=== PATIENT | male | born 1995 | race Caucasian/White ===

== ENCOUNTER 2017-07-17 03:05 | Emergency (ER) | payer SELFPAY ==
[~2017-07-17] VITALS: Ht 167.6 cm; Wt 95.3 kg
[2017-07-17 03:09] VITALS: BP 138/79
--- NOTE | 2017-07-17 03:20 | NUR ---
TO ER OF2
[2017-07-17 04:22] VITALS: BP 138/79
== END 2017-07-17 04:22 | disposition home or self-care (01) ==
LOC: MED 03:05
DX: H81.10 Benign paroxysmal vertigo, unspecified ear (principal)
CPT/HCPCS: 99282

== ENCOUNTER 2017-07-23 16:16 | Emergency (ER) | payer SELFPAY ==
[~2017-07-23] VITALS: Ht 167.6 cm; Wt 95.3 kg
[2017-07-23 16:21] VITALS: BP 146/90
--- NOTE | 2017-07-23 17:00 | NUR ---
NOTIFIED OF DIP STICK RESULTS----ASKED MD IF HE WOULD LIKE FOR KIDNEY ULTRASOUND ; MD WILL EVAL PRIOR
--- NOTE | 2017-07-23 17:00 | NUR ---
PATIENT PRESENTS TO ED WITH C/O LOWER BACK PAIN. PT STATES HE STARTED HAVING BACK PAIN TODAY AND TOOK IBUPROFEN EARLIER BUT HIS PAIN BECAME WORSE. PT DENIES FALL OR TRAUMA. PATIENT REPORTS THAT HE FELL AT WORK ABOUT A YEAR AGO AND HAS BEEN HAVING ON AND OFF LOWER BACK PAIN SINCE THEN . DENIES N/V/D; SKIN IS PINK/WARM/DRY; AAOX4 WITH EVEN AND STEADY GAIT; LUNGS CLEAR BL; HR EVEN AND REGULAR; PT DENIES ANY FEVER, CP, SOB, OR COUGH AT THIS TIME; PATIENT STATES PAIN OF 9/10 AT THIS TIME; VSS; PATIENT POSITIONED FOR COMFORT; HOB ELEVATED; BEDRAILS UP X2; BED DOWN. ER MD MADE AWARE OF PT STATUS.
[2017-07-23 17:12] LABS: APPEARANCE,URINE SL CLOUDY (CLEAR); BILIRUBIN,URINE NEGATIVE (NEGATIVE); BLOOD, URINE 3+ (NEGATIVE); COLOR,URINE YELLOW (YELLOW); LEUKOCYTE ESTERASE ,URINE NEGATIVE (NEGATIVE); NITRITE, URINE NEGATIVE (NEGATIVE); UGLUCOSE NEGATIVE (NEGATIVE)
[2017-07-23 18:16] LABS: RBC,URINE >100 /HPF (0-5)
[2017-07-23 18:17] LABS: YEAST,URINE Few /HPF (None Seen)
[2017-07-23] MEDS ORDERED: KETOROLAC 30 MG/ML VIAL IVP ONE (19:20)
[2017-07-23] MEDS ORDERED: NACL 0.9% 1,000 ML IV ONE (19:20)
--- NOTE | 2017-07-23 20:30 | NUR ---
ALL RESULTS BACK AND NOTED BY ERMD AND FOR D/C
[2017-07-23 21:01] VITALS: BP 114/60
--- NOTE | 2017-07-23 21:01 | NUR ---
Patient discharged with v/s stable. Written and verbal after care instructions given and explained. Patient alert, oriented and verbalized understanding of instructions. Ambulatory with steady gait. All questions addressed prior to discharge. ID band removed. Patient advised to follow up with PMD. Rx of TRAMADO, 50 MG, MOTRIN 800MG given. Patient educated on indication of medication including possible reaction and side effects. Opportunity to ask questions provided and answered.
== END 2017-07-23 21:01 | disposition home or self-care (01) ==
LOC: MED 16:16
DX: N20.0 Calculus of kidney (principal)
CPT/HCPCS: 74176; 81001; 87086; 96361; 96374; 99285; J1885; J7030

== ENCOUNTER 2019-06-04 19:52 | Emergency (ER) | payer OTHER ==
[~2019-06-04] VITALS: Ht 170.2 cm; Wt 99.8 kg
[2019-06-04 19:53] VITALS: BP 160/101
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
--- NOTE | 2019-06-04 20:08 | NUR ---
PT TRIAGED, SENT BACK TO LOBBY AWAITING FOR BED
--- NOTE | 2019-06-04 21:00 | NUR ---
PT AMBULATED TO BED WITH FIANCE
[2019-06-04] MEDS ORDERED: KETOROLAC 30 MG/ML VIAL IM ONE (21:20)
--- NOTE | 2019-06-04 21:26 | NUR ---
PATIENT TAKEN TO CT.
[2019-06-04 22:30] VITALS: BP 143/89
--- NOTE | 2019-06-04 22:30 | NUR ---
Patient discharged with v/s stable. Pt states pain reduced and tollerable at 3/10. Written and verbal after care instructions given and explained. Patient alert, oriented and verbalized understanding of instructions. Ambulatory with steady gait. All questions addressed prior to discharge. ID band removed. Patient advised to follow up with PMD and when to return to ER. Rx of Naprosyn given. Patient educated on indication of medication including possible reaction and side effects. Opportunity to ask questions provided and answered.
== END 2019-06-04 22:30 | disposition home or self-care (01) ==
LOC: MED 19:52
DX: S16.1XXA Strain of muscle, fascia and tendon at neck level, initial encounter (principal); S06.0X0A Concussion without loss of consciousness, initial encounter; F17.210 Nicotine dependence, cigarettes, uncomplicated; V63.6XXA Passenger in heavy transport vehicle injured in collision with car, pick-up truck or van in traffic accident, initial encounter; Y93.89 Activity, other specified; Y92.410 Unspecified street and highway as the place of occurrence of the external cause; Y99.8 Other external cause status
CPT/HCPCS: 70450; 71045; 72125; 96372; 99284; J1885

== ENCOUNTER 2019-11-29 02:30 | Emergency (ER) | payer MEDICAID ==
[~2019-11-29] VITALS: Ht 167.6 cm; Wt 104.3 kg
[2019-11-29 02:38] VITALS: BP 142/108
--- NOTE | 2019-11-29 02:41 | NUR ---
PT AMBULATED TO BED 4 WITH STEADY GAIT
--- NOTE | 2019-11-29 02:45 | NUR ---
PT 24 Y/O FEMALE BIB SELF FOR C/O L FLANK PAIN X 3 HOURS AGO. PT STATES HE HAS PAINFUL/BURNING DURING URINATION. PT STATES HE NOTICED BLOOD IN URINE. PAIN 10/10 SHARP AND CONTINOUS IN L FLANK. PAIN IS NON RADIATING. PT STATES HE TOOK TYLENOL AT HOME FOR PAIN RELIEF WITH INEFFECTIVE RESULTS. PT NOTED WITH LABORED, SHALLOW BREATHING. LUNG SOUNDS CLEAR A/P BILAT. AFEBRILE. O2SAT @ 96%. PT BED LOCKED AND IN LOWEST POSITION. PT POSITIONED IN BED FOR COMFORT. MEDHX: KIDNEY STONES X 1 YEAR AGO ALLERGIES: NKA
--- NOTE | 2019-11-29 02:45 | NUR ---
PT PROVIED URINE SAMPLE ; URINE DIP DONE AND GIVEN TO . URINE SAMPLE LEFT FOR LAB TO PICKUP
[2019-11-29] MEDS ORDERED: NACL 0.9% 1,000 ML IV ONE (02:50)
[2019-11-29] MEDS ORDERED: KETOROLAC 30 MG/ML VIAL IVP ONE (02:50)
--- NOTE | 2019-11-29 02:50 | NUR ---
AT BEDSIDE EXAMINING PT
--- NOTE | 2019-11-29 03:00 | NUR ---
PT GIVEN TORADOL 30 MG IVF IN R WIRST FOR C/O 10/10 L FLANK PAIN. IVF INTITIATED NS 0.9% 1L. IV SITE IS PATENT. NO SWELLING OR C/O PAIN NOTED.
--- NOTE | 2019-11-29 03:20 | NUR ---
PT STATES L FLANK PAIN HAS REDUCED FROM 10/10 TO 4/10.
--- NOTE | 2019-11-29 03:45 | NUR ---
PT RESPIRATION ARE EVEN AND UNLABORED. PT RESTING IN BED AND RESPONSIVE TO VERBAL STIMULI. VSS. PT STATES PAIN HAS REDUCED TO 0/10 IN L FLANK. PT IVF FINISHED. IV SITE HAS NO SWELLING OR REDNESS AND PT HAS NO C/O PAIN AT SITE.
--- NOTE | 2019-11-29 03:49 | NUR ---
IV removed, catheter intact and site benign. Applied folded 4x4 gauze and tape to stop bleeding.
[2019-11-29 03:50] VITALS: BP 128/86
--- NOTE | 2019-11-29 03:50 | NUR ---
Patient discharged with v/s stable. Written and verbal after care instructions given and explained. Patient alert, oriented and verbalized understanding of instructions. Ambulatory with steady gait. All questions addressed prior to discharge. ID band removed. Patient advised to follow up with PMD. Rx of FLOMAX, MOTRIN, NORCO given. Patient educated on indication of medication including possible reaction and side effects. Opportunity to ask questions provided and answered.
== END 2019-11-29 03:50 | disposition home or self-care (01) ==
LOC: MED 02:30
DX: R10.9 Unspecified abdominal pain (principal)
CPT/HCPCS: 81002; 96374; 99283; J1885; J7030

== ENCOUNTER 2019-12-06 05:43 | Emergency (ER) | payer MEDICAID ==
[~2019-12-06] VITALS: Ht 167.6 cm; Wt 104.3 kg
[2019-12-06 05:53] VITALS: BP 141/88
--- NOTE | 2019-12-06 05:57 | NUR ---
PT AMBULATED TO BED 7 WITH STEADY GAIT
--- NOTE | 2019-12-06 06:00 | NUR ---
24 y/o male presented to ED c/o left flank pain that radiates to LLQ abd x 1 week. Pt was seen at [facility] ED 11/28 for left flank pain. Pt rates pain 10/10 , constant stabbing sensation. Pt took 800mg Ibuprofen at 0400 this morning w/ no relief. Pt states N/V x8 this week , dysuria , hematuria. Pt denies Fever and diarrhea. pt states this pain feels the same as when he had kidney stones previously. Pt breathing even and unlabored. PT VSS. Pt resting in bed, locked and in lowest position, HOB elevated , side rail x1. pmh: kidney stones NKA
[2019-12-06] MEDS ORDERED: NACL 0.9% 1,000 ML IV ONE (06:05)
[2019-12-06] MEDS ORDERED: KETOROLAC 30 MG/ML VIAL IVP ONE (06:05)
--- NOTE | 2019-12-06 07:13 | NUR ---
RECEIVED REPORT FROM YASMANY SALCIDO , PT COMFORTABLE IN BED ,WITH STABLE V/S , SIDE RAILS UP X1 AND LOCK.
--- NOTE | 2019-12-06 07:13 | NUR ---
REPORT GIVEN TO YASMANY ESTRADA FOR TRANSFER OF CARE.
--- NOTE | 2019-12-06 07:22 | NUR ---
pt taken to ct via consuelo
--- NOTE | 2019-12-06 07:29 | NUR ---
PT BACK FROM [facility].
[2019-12-06 08:18] VITALS: BP 130/80
--- NOTE | 2019-12-06 08:18 | NUR ---
Patient discharged with v/s stable. Written and verbal after care instructions given and explained regarding kidney stones. Patient alert, oriented and verbalized understanding of instructions. Ambulatory with steady gait. All questions addressed prior to discharge. ID band removed. Patient advised to follow up with PMD. Rx of flomax , ibuprofen and norco given. Patient educated on indication of medication including possible reaction and side effects. Opportunity to ask questions provided and answered. Excuse from work given .
--- NOTE | 2019-12-11 08:15 | NUR ---
LATE ENTRY- NS 0.9% BOLUS DISCONTUIED AT 0818.
== END 2019-12-06 08:18 | disposition home or self-care (01) ==
LOC: MED 05:43
DX: N20.0 Calculus of kidney (principal); R31.9 Hematuria, unspecified; J45.909 Unspecified asthma, uncomplicated
CPT/HCPCS: 74176; 81002; 96374; 99284; J1885; J7030; 96375

== ENCOUNTER 2020-09-04 15:09 | Emergency (ER) | payer MEDICAID ==
[~2020-09-04] VITALS: Ht 167.6 cm; Wt 95.3 kg
[2020-09-04 15:19] VITALS: BP 127/90
--- NOTE | 2020-09-04 15:21 | NUR ---
PATIENT AMBULATED TO LOBBY WITH STEADY GAIT
--- NOTE | 2020-09-04 15:32 | NUR ---
25 y/o m coming in from home with c/c ches tpain x 3 weeks. Patient states left pectoral chest pain, non radiating, 3/10 at rest, 10/10 while working. Pt states recent stressor of work. Pt states pain pins/needs, intermittent. States fisrt time occuring. Associated SOB when happening; denies it at this time. Pt states Tylenol at 11am, states relief for 30 mins. PMH/Meds/Allergies: Denies
--- NOTE | 2020-09-04 15:55 | NUR ---
EMT at bedside for EKG.
[2020-09-04 16:49] VITALS: BP 127/90
--- NOTE | 2020-09-04 16:49 | NUR ---
Patient discharged with v/s stable. Written and verbal after care instructions given and explained. Patient verbalized understanding. Ambulatory with steady gait. All questions addressed prior to discharge. Advised to follow up with PMD.
== END 2020-09-04 16:49 | disposition home or self-care (01) ==
LOC: MED 15:09
DX: R07.89 Other chest pain (principal); J45.909 Unspecified asthma, uncomplicated
CPT/HCPCS: 93005; 99283

== ENCOUNTER 2020-10-05 15:26 | Emergency (ER) | payer MEDICAID ==
[~2020-10-05] VITALS: Ht 167.6 cm; Wt 98.9 kg
[2020-10-05 15:31] VITALS: BP 149/78
[2020-10-05] MEDS ORDERED: KETOROLAC 60 MG/2 ML VIAL IM ONE (16:30)
[2020-10-05] MEDS ORDERED: IBUP-2213 PO (16:44)
[2020-10-05] MEDS ORDERED: ACET-8386 PO (16:44)
[2020-10-05 16:57] VITALS: BP 138/80
== END 2020-10-05 16:57 | disposition home or self-care (01) ==
LOC: MED 15:26
DX: M25.511 Pain in right shoulder (principal); J45.909 Unspecified asthma, uncomplicated; F17.200 Nicotine dependence, unspecified, uncomplicated
CPT/HCPCS: 73030; 73080; 96372; 99284; J1885

== ENCOUNTER 2021-02-27 07:43 | Emergency (ER) | payer MEDICAID ==
[~2021-02-27] VITALS: Ht 167.6 cm; Wt 87.5 kg
[~2021-02-27 07:43] MED LIST: ACET-8386 PO; IBUP-2213 PO
[2021-02-27 07:54] VITALS: BP 159/87
--- NOTE | 2021-02-27 07:57 | NUR ---
Patient being evaluated by physician in triage.
[2021-02-27] MEDS ORDERED: ONDANSETRON 4 MG ODT PO ONE (08:05)
[2021-02-27] MEDS ORDERED: KETOROLAC 30 MG/ML VIAL IM ONE (08:05)
--- NOTE | 2021-02-27 08:10 | NUR ---
Labs drawn and sent to lab.
--- NOTE | 2021-02-27 08:15 | NUR ---
PT SENT TO LOBBY TO WAIT FOR AVAILABLE BED OR MSE.
[2021-02-27 08:33] LABS: ANION GAP 14.1 (8-16); CARBON DIOXIDE 25.9 mmol/L (21-32); CREATININE 1.6 mg/dL (0.6-1.3)
[2021-02-27] MEDS ORDERED: NACL 0.9% 1,000 ML IV ONE (09:05)
--- NOTE | 2021-02-27 09:16 | NUR ---
Patient ambulated with steady gait to be 8.
[2021-02-27] MEDS ORDERED: HYDROcodone/APAP 5/325 MG 1 TAB TAB PO ONE (10:35)
[2021-02-27 10:57] LABS: APPEARANCE,URINE CLEAR (CLEAR); BILIRUBIN,URINE NEGATIVE (NEGATIVE); BLOOD, URINE 3+ (NEGATIVE); COLOR,URINE YELLOW (YELLOW); LEUKOCYTE ESTERASE ,URINE NEGATIVE (NEGATIVE); NITRITE, URINE NEGATIVE (NEGATIVE); PH,URINE 6.5 (5.0-9.0); UGLUCOSE TRACE (NEGATIVE)
[2021-02-27 11:31] LABS: RBC,URINE 20-50 /HPF (0-5); WBC,URINE NONE SEEN /HPF (0-5)
[2021-02-27] MEDS ORDERED: TAMS0.4C96 PO (12:01)
[2021-02-27] MEDS ORDERED: IBUP-2213 PO (12:01)
[2021-02-27] MEDS ORDERED: ACET-8386 PO (12:01)
--- NOTE | 2021-02-27 12:05 | NUR ---
Patient discharged with v/s stable. Written and verbal after care instructions given and explained. Patient alert, oriented and verbalized understanding of instructions. Ambulatory with steady gait. All questions addressed prior to discharge. ID band removed. Patient advised to follow up with PMD. Rx of Flomax, [place] 5-325, and Ibuprofen given. Patient educated on indication of medication including possible reaction and side effects, educated on use of narcotics, advised to avoid drinking or driving. Opportunity to ask questions provided and answered.
== END 2021-02-27 12:05 | disposition home or self-care (01) ==
LOC: MED 07:43
DX: N20.0 Calculus of kidney (principal)
CPT/HCPCS: 36415; 74176; 80048; 81001; 96360; 96372; 99284; J1885; J7030; Q0162

== ENCOUNTER 2021-12-22 15:24 | Emergency (ER) | payer OTHER, MEDICAID ==
[~2021-12-22] VITALS: Ht 167.6 cm; Wt 73.9 kg
[~2021-12-22 15:24] MED LIST changes: +TAMS0.4C96 PO
[2021-12-22 15:30] VITALS: BP 130/71
--- NOTE | 2021-12-22 18:25 | NUR ---
Patient ambulated to bed 02 with steady/even gait.
--- NOTE | 2021-12-22 18:30 | NUR ---
26 y/o M BIB self from home c/o bilateral flank pain x 2 days. Patient A&Ox4, ambulatory, states acute onset of flank pain, 8/10, squeezing/constant, radiating to low and mid back. Aggrevating factors ambulating; alleviates with sitting position. Pt also states dysuria, diarrhea last BM this AM and decreased appetite. +RUQ and CVA tenderness. Patient states recently seen in ED 2 weeks ago in which he was told "low Iron and low potassium." Patient denies fever, nausea, vomiting, constipation, cold-like symptoms, chest pain, dizziness, CALDWELL, urinary symptoms. Pt placed into a gown and classroom monitor. Bed locked in lowest position, side rails x 1. PMH: asthma Meds: denies NKDA Sx: Denies
[2021-12-22] MEDS: KETOROLAC 30 MG/ML VIAL IVP ONE (18:51)
[2021-12-22] MEDS: NACL 0.9% 1,000 ML IV ONE (18:56)
--- NOTE | 2021-12-22 19:20 | NUR ---
Report and transfer of care given to YASMANY Fischer.
[2021-12-22] MEDS ORDERED: TAMS0.4C96 PO (19:24)
[2021-12-22] MEDS ORDERED: IBUP-2213 PO (19:24)
[2021-12-22] MEDS ORDERED: ACET-8386 PO (19:24)
[2021-12-22 20:20] VITALS: BP 122/69
--- NOTE | 2021-12-22 20:20 | NUR ---
Patient discharged with v/s stable. Written and verbal after care instructions given and explained. Patient alert, oriented and verbalized understanding of instructions. Ambulatory with steady gait. All questions addressed prior to discharge. ID band removed. Patient advised to follow up with PMD. Rx of IBUPROFEN, FLOMAX, AND [id number] given. Patient educated on indication of medication including possible reaction and side effects. Opportunity to ask questions provided and answered.
== END 2021-12-22 20:20 | disposition home or self-care (01) ==
LOC: MED 15:24
DX: R10.9 Unspecified abdominal pain (principal); J45.909 Unspecified asthma, uncomplicated; F12.90 Cannabis use, unspecified, uncomplicated
CPT/HCPCS: 96361; 96374; 99283; J1885; J7030

== ENCOUNTER 2022-02-02 21:03 | Emergency (ER) | payer MEDICAID, OTHER ==
[~2022-02-02] VITALS: Ht 167.6 cm; Wt 69.9 kg
[2022-02-02 21:12] VITALS: BP 143/92
[2022-02-02] MEDS ORDERED: ACETAMINOPHEN EXTRA STRENGTH 500 MG TAB PO ONE (21:20)
--- NOTE | 2022-02-02 22:08 | NUR ---
26/M PRESENTS TO ED WITH C/O HEAD PAIN S/P A WRENCH FALLING ONTO HIS HEAD, STATES WITNESSED LOC "FOR 1-2 MINUTES." REPORTS SOME DIZZINESS AT THIS TIME, DENIES N/V.
[2022-02-02] MEDS ORDERED: ACET-10509 PO (22:19)
[2022-02-02 22:41] VITALS: BP 138/88
--- NOTE | 2022-02-02 22:42 | NUR ---
Patient discharged with v/s stable. Written and verbal after care instructions given and explained. Patient alert, oriented and verbalized understanding of instructions. Ambulatory with steady gait. All questions addressed prior to discharge. ID band removed. Patient advised to follow up with PMD. Rx of TYLENOL given. Patient educated on indication of medication including possible reaction and side effects. Opportunity to ask questions provided and answered. VSS, A/OX4, AMBULATORY, UNLABORED BREATHING, AND CALM DEMEANOR.
== END 2022-02-02 22:40 | disposition home or self-care (01) ==
LOC: MED 21:03
DX: S09.90XA Unspecified injury of head, initial encounter (principal); Z79.899 Other long term (current) drug therapy; J45.909 Unspecified asthma, uncomplicated; W17.89XA Other fall from one level to another, initial encounter; Y93.89 Activity, other specified; Y92.89 Other specified places as the place of occurrence of the external cause; Y99.8 Other external cause status
CPT/HCPCS: 70450; 99284

== ENCOUNTER 2023-05-16 17:50 | Emergency (ER) | payer MEDICAID, OTHER ==
[~2023-05-16 17:50] MED LIST changes: +ACET-10509 PO; -ACET-8386 PO; +ACET-8905 PO; +MAG-27 PO
== END 2023-05-16 19:10 | disposition left against medical advice (07) ==
LOC: MED 17:50
DX: Z53.21 Procedure and treatment not carried out due to patient leaving prior to being seen by health care provider (principal)